=== PATIENT | female | born 1930 | race Caucasian/White ===

== ENCOUNTER → 2019-10-23 | Outpatient (CLI) | payer MEDICARE ==
[~2019-10-23] MED LIST: ACET325T14 PO; AMLO-150 PO; ASPI-496 PO; ATEN25TA PO; CIPR500T8 PO; CITA20TA9 PO; DOCU-131 PO; DONE5TAB52 PO; DOXY100C2 PO; HYDR-3240 PO; HYDR25TA6 PO; SULF1TAB24 PO; TRAM50TA2 PO; VENL100T PO; VENL150C6 PO; VENL75CA6 PO; VIT1CAPS9 PO
== END | disposition home or self-care (01) ==
LOC: WOUND 08:57
PROVIDERS: ATTEND Podiatrist Foot & Ankle Surgery
DX: L89.893 Pressure ulcer of other site, stage 3 (principal); L97.522 Non-pressure chronic ulcer of other part of left foot with fat layer exposed; L03.116 Cellulitis of left lower limb; M21.612 Bunion of left foot; H91.90 Unspecified hearing loss, unspecified ear; R32 Unspecified urinary incontinence; F03.90 Unspecified dementia, unspecified severity, without behavioral disturbance, psychotic disturbance, mood disturbance, and anxiety; J44.9 Chronic obstructive pulmonary disease, unspecified; I10 Essential (primary) hypertension; M19.90 Unspecified osteoarthritis, unspecified site; I25.10 Atherosclerotic heart disease of native coronary artery without angina pectoris; F32.9 Major depressive disorder, single episode, unspecified; I11.9 Hypertensive heart disease without heart failure; F17.210 Nicotine dependence, cigarettes, uncomplicated; Z98.49 Cataract extraction status, unspecified eye; Z85.3 Personal history of malignant neoplasm of breast; Z85.51 Personal history of malignant neoplasm of bladder; M24.562 Contracture, left knee
CPT/HCPCS: 11042; G0463

== ENCOUNTER 2019-10-30 10:08 | Outpatient (CLI) | payer MEDICARE | END 2019-10-30 23:59 | disposition home or self-care (01) | LOC: WOUND 10:08 | PROVIDERS: ATTEND Podiatrist Foot & Ankle Surgery | DX: L89.893 Pressure ulcer of other site, stage 3 (principal); M21.612 Bunion of left foot; H91.90 Unspecified hearing loss, unspecified ear; R32 Unspecified urinary incontinence; F03.90 Unspecified dementia, unspecified severity, without behavioral disturbance, psychotic disturbance, mood disturbance, and anxiety; J44.9 Chronic obstructive pulmonary disease, unspecified; I10 Essential (primary) hypertension; M19.90 Unspecified osteoarthritis, unspecified site; I25.10 Atherosclerotic heart disease of native coronary artery without angina pectoris; F32.9 Major depressive disorder, single episode, unspecified; I11.9 Hypertensive heart disease without heart failure; F17.210 Nicotine dependence, cigarettes, uncomplicated; Z98.49 Cataract extraction status, unspecified eye; Z85.3 Personal history of malignant neoplasm of breast; Z85.51 Personal history of malignant neoplasm of bladder; M24.562 Contracture, left knee | CPT/HCPCS: 87070; 87205; G0463 ==